=== PATIENT | male | born 1950 | race Caucasian/White ===

== ENCOUNTER 2017-07-30 22:43 | Observation (INO) | payer OTHER ==
[~2017-07-30] VITALS: Ht 175.3 cm; Wt 78.5 kg
[~2017-07-30 22:43] MED LIST: ADULT LOW DOSE81 MG PO; ASPIR 8181 MG PO; BRILINTA90 MG PO; EFFIENT10 MG PO; FISH OIL 1,0001 EAC8 PO; FISH OIL 1,001000 M2 PO; LIPITOR40 MG PO; MIRALAX255 GM PO; NITROGLYCERIN0.4 MG SUBLING; PLAVIX 75 MG TA75 M1 PO; PLAVIX 75 MG TA75 MG PO
[2017-07-30 22:46] VITALS: BP 139/73
[2017-07-30] MEDS ORDERED: ASPIRIN325 PO (22:58)
[2017-07-30] MEDS ORDERED: PLAVIX 75 MG TA75 M1 PO (22:58)
[2017-07-30 23:08] LABS: ABSOLUTE BASOPHILS 0.1 thou/uL (0.0-0.2); ABSOLUTE EOSINOPHILS 0.1 thou/uL (0.0-0.7); ABSOLUTE LYMPHOCYTES 1.9 thou/uL (0.8-5.3); ABSOLUTE NEUTROPHILS 6.3 thou/uL (1.6-8.1); BASOPHILS 0.9 %; EOSINOPHILS 1.5 %; HEMATOCRIT 43.7 % (42.0-52.0); LYMPHOCYTES 20.6 %; MCH 32.1 pg (26.0-34.0); MCHC 34.3 g/dL (28.0-37.0); MCV 93.6 fL (80.0-100.0); MONOCYTES 10.1 %; MPV 8.2 fl. (7.2-11.1); NUCLEATED RBCS 0 /100WBC; PLATELET COUNT* 195 thou/uL (150-400); POLYS 66.9 %; RBC 4.67 mil/uL (4.50-6.00); RDW-CV 13.7 % (10.5-14.5); WBC 9.4 thou/uL (4.0-11.0)
[2017-07-30 23:15] LABS: ANION GAP 6 mmol/L (7-16); BUN 23 mg/dL (7-18); CALCIUM 8.4 mg/dL (8.5-10.1); CHLORIDE 105 mmol/L (98-107); CO2 27 mmol/L (21-32); CREATININE 1.2 mg/dL (0.6-1.3); GLUCOSE 102 mg/dL (70-99); POTASSIUM 4.1 mmol/L (3.5-5.1); SODIUM 138 mmol/L (136-145)
[2017-07-30 23:18] LABS: PROTIME 9.9 Seconds (9.20-11.50)
[2017-07-30 23:26] LABS: ALBUMIN 3.4 g/dL (3.4-5.0); ALKALINE PHOSPHATASE 74 U/L (46-116); NT-PRO BRAIN NAT PEPTIDE 221 pg/mL (<300); SGOT 23 U/L (15-37); SGPT 18 U/L (30-65); TOTAL BILIRUBIN 0.4 mg/dL (<0.1-1.0); TOTAL PROTEIN 6.4 g/dL (6.4-8.2); TROPONIN-I LEVEL <0.06 ng/mL (<0.06)
[2017-07-31 01:16] LABS: URINE BILIRUBIN NEGATIVE (Negative); URINE BLOOD NEGATIVE (Negative); URINE CLARITY CLEAR; URINE COLOR YELLOW; URINE GLUCOSE-RANDOM NEGATIVE (Negative); URINE KETONES NEGATIVE (Negative); URINE LEUKOCYTES-REFLEX NEGATIVE (Negative); URINE NITRITE-REFLEX NEGATIVE (Negative); URINE PROTEIN NEGATIVE (Negative); URINE UROBILINOGEN 0.2 E.U./dl (0.2-1.0)
[2017-07-31 01:54] VITALS: BP 124/64
[2017-07-31 02:00] VITALS: BP 115/59
[2017-07-31 08:00] VITALS: BP 105/58
[2017-07-31 08:35] LABS: CALCIUM 8.2 mg/dL (8.5-10.1); MAGNESIUM 1.8 mg/dL (1.8-2.4); POTASSIUM 3.9 mmol/L (3.5-5.1)
[2017-07-31 12:00] VITALS: BP 114/59
--- NOTE | 2017-07-31 12:42 | EKG ---
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
[2017-07-31 16:00] VITALS: BP 110/57
[2017-07-31 20:12] VITALS: BP 113/62
[2017-08-01] VITALS (16 sets, daily range): BP systolic 99–155; BP diastolic 47–97
[2017-08-01 06:02] LABS: CHOLESTEROL 161 mg/dL (<200); HDL CHOLESTEROL 40 mg/dL (>40); LDL CHOLESTEROL 107 mg/dL (<100); SERUM ASSESSMENT Clear; TRIGLYCERIDE 71 mg/dL (<150); VLDL 14 mg/dL (<40)
--- NOTE | 2017-08-01 15:03 | CARD ---
[address] [address] CARDIAC CATH REPORT Name: JARETH RODGERS Room: [address] MAmyRAmy#: [id number] Admission: 07/31/17 Attend Phys: Bennett Hassan, Discharge: Date of : 54 Report #: [id number] THIS REPORT FOR: //name// APPROVED REPORT Patient Details Patient Status: In-Patient Room #: The patient is a 67 year-old male Event Personnel Daniel Min Tack Puller, Radha Grajeda RN RN, Lovely Gutiérrez RTR Shailesh Warren James Monitor Procedures Performed Left heart catheterization left ventriculography and selective coronary arteriography Indication Chest pain Risk Factors Hypercholesterolemia, Coronary Artery Disease Previous Procedures/Diagnoses Previous PCI Procedure Narrative The patient was brought electively to the Cardiac Catheterization Laboratory and was prepped and draped in a sterile manner. The right femoral was infiltrated with 1% Lidocaine subcutaneous anesthesia. A [place] 6 FR sheath was inserted into the . Coronary angiography was performed using coronary diagnostic catheters. The right coronary system was accessed and visualized with a Diagnostic - JR4 catheter. The left coronary system was accessed and visualized with a Diagnostic - JL4 catheter. The left ventricle was accessed and visualized with a Diagnostic - Pigtail catheter. Left ventricular/Aortic Valve gradient assessed via catheter pullback. Pre-demployment femoral angiogram was performed . Closure device was deployed with a Fr Mynx. The patient tolerated the procedure well and there were no complications associated with the procedure. Intraoperative Conscious Sedation Sedation start time: 1204 Case end Time: 1238 Fentanyl 25 mcg Versed [address] [address] CARDIAC CATH REPORT Name: JARETH RODGERS Room: [address] [place] Arora#: [id number] Admission: 07/31/17 Attend Phys: Bennett Hassan, Discharge: Date of : 54 Report #: [id number] Fluoro Time: 2.9 minutes Dose: DAP 78496 cGycm2 750 mGy Contrast Type and Amount: Visipaque 185 ml Diagnostic Cath Left Main 0% narrowing LAD 40% proximal and 30% mid LAD narrowing Circumflex 40% clefted and mid circumflex narrowing, this being a nondominant vessel Right Coronary Dominant vessel with 30% proximal narrowing and multiple widely patent proximalmid vessel stents with aneurysmal dilatation distally followed by 40% narrowing before the bifurcation into posterior lateral and posterior descending branches Left Ventriculography Ejection Fraction was 50% based off patient's . The left ventricle is normal in size with mildly decreased contractility. The left ventricular ejection fraction is estimated to be 50%. Left ventricular wall motion abnormalities are mid inferior hypokinesis. There is no mitral insufficiency. Hemodynamics The aortic pressure is 112/46 mmHg with a mean of 68 mmHg. The left ventricular pressure is 124/0 mmHg with a mean of mmHg. The left ventricular end diastolic pressure is 8 mmHg. There was no gradient across the aortic valve upon pullback. Conclusion #1 modest coronary artery disease characterized by the following: A 40% proximal 30% mid LAD narrowing, B 40% clefted narrowing of the midportion of the nondominant circumflex, C large dominant right coronary artery with 30% proximal narrowing, widely patent proximal and mid vessel stents, and 40% distal narrowing after an area of aneurysmal dilatation #2 normal left-sided hemodynamics study, #3 mild impairment in global left ventricular systolic function, estimated ejection fraction 50% with mid [place] [address] CARDIAC CATH REPORT Name: JARETH RODGERS Room: [address] M.R.#: [id number] Admission: 07/31/17 Attend Phys: Bennett Hassan, Discharge: Date of : 54 Report #: [id number] Recommendations Cardiac Risk Reduction Program <ELECTRONICALLY SIGNED> By: Daniel Min MD, FACC 08/01/17 1503 1503 1503Daniel Min MD, FACC /INF
--- NOTE | 2017-08-01 15:47 | EKG ---
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
--- NOTE | 2017-08-02 17:12 | CON ---
[address] [address] CONSULTATION Name: ANA MARIAJARETH RAYMUNDO Room: [address] [place] Arora#: [id number] Admission: 07/31/17 Attend Phys: Bennett Hassan, Discharge: 08/01/17 Date of : 54 Report #: [id number] THIS REPORT FOR: //name// CC: Gwyn Hassan CARDIOLOGY CONSULTATION HISTORY OF PRESENT ILLNESS: I was asked by Dr. Hassan to see this 67-year-old white male in cardiology consultation for evaluation and treatment of chest pain. This man has known coronary artery disease. He is status post 7 coronary stents, the last was in August [address] Min here. Previously, had stents placed in 2004, 2007 and 2012. He had a drug-eluting stent at a 75% mid right coronary stenosis. There was an in-stent restenosis and he had drug-eluting stent placed in an 80% stenosis of a posterolateral branch of the right coronary by Dr. iMn in 2016. Additionally, this man has hyperlipidemia. He is a smoker. He was told on certain terms today to stop smoking. He has been smoking a pack a day and he has a small abdominal aortic aneurysm that is said to be stable from a CT yesterday. This man's chest pain began following an episode of right groin pain associated with mid abdominal fluttering. He apparently got a CT of the chest yesterday that was unremarkable as well as a CT of the abdomen that showed a small abdominal aortic aneurysm that was stable. The abdominal pain lasted about 15 minutes. It was 8 or 9 on a scale of 10. It went away, but subsequently then he developed substernal chest pressure, similar to his previous heart pain, but milder. The pain was 5-6 on a scale of 10. Previously, he had had a 9 on a scale of 10 pain. The chest pain lasted 20 minutes. He has not had any pain since then. He has not been having any problem with exertional chest pain or damaris angina. The chest discomfort yesterday was not worse with exertion. It did seem to be better with rest. It did occur at rest. There was associated shortness of breath. There was no nausea. There was some diaphoresis yesterday. There seemed to be some relationship to food. It seemed to be aggravated by food. Said he did not try nitroglycerin at home and pain was gone by the time he got to the hospital. There was no radiation of the pain. He denies dyspnea on exertion, shortness of breath at rest, orthopnea or PND. He has not had any damaris syncope. Coronary risk factors include smoking, high cholesterol and a family history of coronary disease. He has not had diabetes or high blood pressure or chronic kidney disease. He has not had peripheral vascular disease. He does not clearly get claudication, but he does get pain in his legs when he walks. He apparently may have had some time a slight TIA. There are not any open or nonhealing wounds. ALLERGIES: HE IS ALLERGIC TO ZETIA, which causes a rash. MEDICATIONS: Aspirin 325 mg daily, atorvastatin 40 mg daily, Plavix 75 mg daily, p.r.n. nitroglycerin and fish oil 1 capsule daily apparently 1000 mg. FAMILY HISTORY: Remarkable for his mother having diabetes. Father had bypass [address] [address] CONSULTATION Name: JARETH RODGERS Room: [address] PADMINI Arora#: [id number] Admission: 07/31/17 Attend Phys: Bennett KerenAmy Mo, Discharge: 08/01/17 Date of : 54 Report #: [id number] graft surgery. Two brothers had heart attacks. Father had colon cancer. Grandparents all lived to be elderly, but all had heart disease. REVIEW OF SYSTEMS: Positive for weakness or paralysis. He says he has nerve damage. He has a chronic dry hacking cough. He is a smoker. He has palpitations, chest discomfort, shortness of breath with exercise and near syncope when he stands up suddenly on several occasions. He has had a blood clot in a vein he says. HE HAS ALLERGY TO ZETIA. He does wear glasses, does have dentures on the top, otherwise his review of systems is negative for some 35 different complaints in 14 different system categories including central nervous system, general, respiratory, cardiovascular, endocrine, gastrointestinal, genitourinary, hematologic, lymphatic, allergic, immunologic, psychiatric, musculoskeletal, skin, eyes, ears, nose, mouth and throat. Please see review of system form for details and negatives in review of systems. SOCIAL HISTORY: He is . 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 Smokes a pack a day. He was told to stop smoking. Does not drink, does not use illegal drugs. PHYSICAL EXAMINATION: GENERAL: He presents as well-developed, well-nourished white male in no acute distress. VITAL SIGNS: His pulse was 50 and regular, blood pressure is 115/59, respirations 17 and regular, temperature is 97.5. HEENT: His head was atraumatic. Eyes clear. NECK: Supple. There is no jugular venous distention or hepatojugular reflux. Thyroid is not enlarged. There is no adenopathy. SKIN: Warm and dry. MOUTH: Mucous membranes are moist. LUNGS: Clear to auscultation and percussion. HEART: Revealed normal first and second heart sound. There is soft S4. There is no S3. There are no murmurs, rubs, thrills, heaves or gallops. PMI is nondisplaced. ABDOMEN: Soft, flat, nontender, no palpable masses, no organomegaly. EXTREMITIES: Reveal no cyanosis, clubbing or edema. NEUROLOGIC: The patient mentated normally, talked normally and moved all extremities normally. LABORATORY DATA: Troponins are negative times 3. EKG shows normal sinus rhythm. There is some ST segment elevation in V3. There is also loss of R-wave there in V3 and V4. There is no elevation in V2 and V4. He does show sinus bradycardia. Another EKG is pending. IMPRESSION: 1. Chest pain, possibly coronary. 2. [place] [address] CONSULTATION Name: JARETH RODGERS Room: [address] [place] Arora#: [id number] Admission: 07/31/17 Attend Phys: Bennett Hassan, Discharge: 08/01/17 Date of : 54 Report #: [id number] 3. Status post multiple coronary stents, 7 in fact. 4. Hyperlipidemia. 5. Smoking. 6. Abdominal aortic aneurysm. RECOMMENDATION: He should have a stress test and an echo. Please see my orders. Thank you very much for asking me to see return the patient. If there are any questions, please feel free to contact me. <ELECTRONICALLY SIGNED> By: Olivia Beverly MD, FACC 08/02/17 1712 1213 1831F. Bret Beverly MD, FACC /nt
== END 2017-08-01 18:29 | disposition home or self-care (01) ==
LOC: M.ERS 22:43 → M.2W 07-31 00:50 → M.TBA-ER 07-31 00:50 → M.2W 07-31 01:32
PROVIDERS: Emergency Medicine; Internal Medicine; ADMIT Family Medicine
DX: E78.5 Hyperlipidemia, unspecified (principal); I25.110 Atherosclerotic heart disease of native coronary artery with unstable angina pectoris; I71.4 Abdominal aortic aneurysm, without rupture; I49.8 Other specified cardiac arrhythmias; I12.9 Hypertensive chronic kidney disease with stage 1 through stage 4 chronic kidney disease, or unspecified chronic kidney disease; N18.3 Chronic kidney disease, stage 3 (moderate); I25.2 Old myocardial infarction; F17.210 Nicotine dependence, cigarettes, uncomplicated; Z23 Encounter for immunization

== ENCOUNTER 2018-06-02 15:22 | Emergency (ER) | payer MEDICARE ==
[~2018-06-02] VITALS: Ht 172.7 cm; Wt 77.6 kg
[~2018-06-02 15:22] MED LIST changes: +ASPIRIN325 PO
[2018-06-02 16:15] LABS: ABSOLUTE BASOPHILS 0.1 thou/uL (0.0-0.2); ABSOLUTE EOSINOPHILS 0.2 thou/uL (0.0-0.7); ABSOLUTE LYMPHOCYTES 1.7 thou/uL (0.8-5.3); ABSOLUTE MONOCYTES 0.7 thou/uL (0.0-1.2); ABSOLUTE NEUTROPHILS 4.3 thou/uL (1.6-8.1); EOSINOPHILS 2.6 %; HEMATOCRIT 42.4 % (42.0-52.0); HEMOGLOBIN 14.5 gm/dL (14.0-18.0); LYMPHOCYTES 24.5 %; MCH 32.2 pg (26.0-34.0); MCHC 34.2 g/dL (28.0-37.0); MCV 94.3 fL (80.0-100.0); MONOCYTES 10.4 %; MPV 8.2 fl. (7.2-11.1); NUCLEATED RBCS 0 /100WBC; PLATELET COUNT* 218 thou/uL (150-400); POLYS 61.5 %; RDW-CV 13.3 % (10.5-14.5); WBC 6.9 thou/uL (4.0-11.0)
[2018-06-02 16:21] LABS: URINE BILIRUBIN NEGATIVE (Negative); URINE BLOOD NEGATIVE (Negative); URINE CLARITY CLEAR; URINE COLOR YELLOW; URINE GLUCOSE-RANDOM NEGATIVE (Negative); URINE KETONES NEGATIVE (Negative); URINE LEUKOCYTES-REFLEX NEGATIVE (Negative); URINE NITRITE-REFLEX NEGATIVE (Negative); URINE PROTEIN NEGATIVE (Negative); URINE UROBILINOGEN 0.2 E.U./dl (0.2-1.0)
[2018-06-02 16:25] LABS: ANION GAP 8 mmol/L (7-16); BUN 9 mg/dL (7-18); CALCIUM 9.1 mg/dL (8.5-10.1); CHLORIDE 102 mmol/L (98-107); CO2 30 mmol/L (21-32); CREATININE 1.1 mg/dL (0.6-1.3); GLUCOSE 109 mg/dL (70-99); SODIUM 140 mmol/L (136-145)
[2018-06-02 16:36] LABS: ALBUMIN 3.6 g/dL (3.4-5.0); ALKALINE PHOSPHATASE 79 U/L (46-116); NT-PRO BRAIN NAT PEPTIDE 166 pg/mL (<300); SGOT 20 U/L (15-37); SGPT 21 U/L (30-65); TOTAL BILIRUBIN 0.6 mg/dL (<0.1-1.0); TOTAL PROTEIN 6.6 g/dL (6.4-8.2); TROPONIN-I LEVEL <0.06 ng/mL (<0.06)
[2018-06-02 17:29] LABS: INFLUENZA A ANTIGEN None Detected (None Detect); INFLUENZA B ANTIGEN None Detected (None Detect)
[2018-06-02 18:33] VITALS: BP 133/64
--- NOTE | 2018-06-03 12:12 | EKG ---
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: Stu JJ : 1950 Requested By: Alida Wang Order Number: [id number] MD: Jose Gibbs Measurements Intervals [place] Rate: 52 P: 46 OR: 154 QRS: 77 QRSD: 96 T: 38 QT: 449 QTc: 418 Interpretive Statements Sinus rhythm Minimal ST elevation, anterior leads Baseline wander in lead(s) V4 Compared to ECG 07/31/2017 12:09:44 Sinus bradycardia no longer present ST (T wave) deviation still present Electronically Signed On 06-03-2018 12:12:25 CARE NURSE RN by Jose Gibbs [email or web address] <ELECTRONICALLY SIGNED> By: Jose Gibbs MD, FAC 06/03/18 1212 1551 1551 Jose Gibbs MD, [facility] /EPI
== END 2018-06-02 18:34 | disposition home or self-care (01) ==
LOC: M.ERS 15:22
PROVIDERS: Nurse Practitioner
DX: R53.1 Weakness (principal); E86.0 Dehydration; F17.210 Nicotine dependence, cigarettes, uncomplicated; Z88.8 Allergy status to other drugs, medicaments and biological substances; Z95.5 Presence of coronary angioplasty implant and graft

== ENCOUNTER → 2018-07-06 | Outpatient (CLI) | payer MEDICARE, OTHER | LOC: M.ULTRA 07-05 10:00 | DX: I71.4 Abdominal aortic aneurysm, without rupture (principal) ==

== ENCOUNTER 2019-08-02 19:14 | Inpatient (IN) | payer MEDICARE, OTHER ==
[~2019-08-02] VITALS: Ht 175.3 cm; Wt 78.5 kg
[2019-08-02 19:22] VITALS: BP 165/73
[2019-08-02 19:39] LABS: ABSOLUTE BASOPHILS 0.1 thou/uL (0.0-0.2); ABSOLUTE EOSINOPHILS 0.2 thou/uL (0.0-0.7); ABSOLUTE LYMPHOCYTES 1.6 thou/uL (0.8-5.3); ABSOLUTE MONOCYTES 0.7 thou/uL (0.0-1.2); ABSOLUTE NEUTROPHILS 3.5 thou/uL (1.6-8.1); BASOPHILS 0.9 %; EOSINOPHILS 2.5 %; HEMATOCRIT 45.5 % (42.0-52.0); HEMOGLOBIN 16.2 gm/dL (14.0-18.0); MCH 33.2 pg (26.0-34.0); MCHC 35.6 g/dL (28.0-37.0); MCV 93.3 fL (80.0-100.0); MONOCYTES 11.7 %; MPV 7.7 fl. (7.2-11.1); NUCLEATED RBCS 0 /100WBC; PLATELET COUNT* 230 thou/uL (150-400); POLYS 57.9 %; RBC 4.88 mil/uL (4.50-6.00); RDW-CV 13.6 % (10.5-14.5); WBC 6.1 thou/uL (4.0-11.0)
[2019-08-02 19:42] LABS: CALCIUM 8.4 mg/dL (8.5-10.1); CREATININE 1.2 mg/dL (0.6-1.3); POTASSIUM 4.1 mmol/L (3.5-5.1)
[2019-08-02 19:52] LABS: URINE BILIRUBIN NEGATIVE (Negative); URINE BLOOD NEGATIVE (Negative); URINE CLARITY CLEAR; URINE COLOR YELLOW; URINE GLUCOSE-RANDOM NEGATIVE (Negative); URINE KETONES NEGATIVE (Negative); URINE LEUKOCYTES-REFLEX NEGATIVE (Negative); URINE NITRITE-REFLEX NEGATIVE (Negative); URINE PROTEIN NEGATIVE (Negative); URINE SPECIFIC GRAVITY >= 1.030 (1.005-1.030); URINE UROBILINOGEN 0.2 E.U./dl (0.2-1.0)
[2019-08-02 19:52] LABS: TOTAL BILIRUBIN 0.7 mg/dL (<0.1-1.0); TOTAL PROTEIN 7.4 g/dL (6.4-8.2)
[2019-08-02 20:57] LABS: AMP/METHAMP Negative (Negative); BARBITURATES Negative (Negative); BENZODIAZEPINES Negative (Negative); COCAINE Negative (Negative); METHADONE Negative (Negative); OPIATES POSITIVE (Negative); PCP Negative (Negative); THC POSITIVE (Negative)
[2019-08-02 20:59] LABS: APTT 27.1 Seconds (25.0-31.3); PROTIME 10.2 Seconds (9.20-11.50)
[2019-08-02 23:30] VITALS: BP 131/49
[2019-08-02 23:35] VITALS: BP 130/67
[2019-08-03 04:00] VITALS: BP 107/42
--- NOTE | 2019-08-03 04:51 | NUR ---
PT ADMITTED TO FLOOR AT 2310 WITH C/O RIGHT FLANK PAIN. PARTIAL CONTROLLED WITH PRN PAIN MEDICATION. PT HAS NO OTHER CONCERNS NOTED AT THIS TIME. ASSESSMENTS COMPLETED AT BEDSIDE, CURRENTLY ASLEEP IN BED WITH CALL LIGHT WITHIN REACH.
--- NOTE | 2019-08-03 07:20 | NUR ---
CHANGE OF SHIFT, BEDSIDE REPORT GIVEN PATIENT SEEN AT BEDSIDE, IN BED ASSUMED PATIENT CARE
[2019-08-03 08:00] VITALS: BP 103/34
[2019-08-03 09:19] LABS: CHOLESTEROL 89 mg/dL (<200); HDL CHOLESTEROL 29 mg/dL (>40); LDL CHOLESTEROL 54 mg/dL (<100); TC:HDL 3.1 Ratio (Not establshd); TRIGLYCERIDE 34 mg/dL (<150); VLDL 7 mg/dL (<40)
[2019-08-03 09:20] LABS: SERUM ASSESSMENT Clear
--- NOTE | 2019-08-03 09:45 | EKG ---
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 normal variant Compared to ECG 06/02/2018 15:51:23 Sinus rate has decreased ST (T wave) deviation still present Electronically Signed On 08-03-2019 9:44:08 SUPERVISING PRODUCER by Daniel Min [email or web address] <ELECTRONICALLY SIGNED> By: Daniel Min MD, [facility] 08/03/19 0944 44 44 Daniel Min MD, FAC /EPI
[2019-08-03 12:59] VITALS: BP 122/43
[2019-08-03 18:20] LABS: URINE BILIRUBIN NEGATIVE (Negative); URINE BLOOD NEGATIVE (Negative); URINE CLARITY CLEAR; URINE COLOR YELLOW; URINE GLUCOSE-RANDOM NEGATIVE (Negative); URINE KETONES NEGATIVE (Negative); URINE LEUKOCYTES NEGATIVE (Negative); URINE NITRITE NEGATIVE (Negative); URINE PROTEIN NEGATIVE (Negative); URINE UROBILINOGEN 0.2 E.U./dl (0.2-1.0)
[2019-08-03 19:39] VITALS: BP 130/49
[2019-08-03 19:56] VITALS: BP 109/47
[2019-08-04] VITALS: BP 118/41
[2019-08-04 03:30] VITALS: BP 108/45
[2019-08-04 05:37] LABS: MCH 32.6 pg (26.0-34.0); MCHC 35.1 g/dL (28.0-37.0); MCV 92.8 fL (80.0-100.0); RBC 4.21 mil/uL (4.50-6.00); RDW-CV 13.5 % (10.5-14.5); WBC 6.5 thou/uL (4.0-11.0)
[2019-08-04 05:44] LABS: HEMOGLOBIN 13.7 gm/dL (14.0-18.0)
[2019-08-04 05:57] LABS: CALCIUM 7.4 mg/dL (8.5-10.1); CREATININE 0.9 mg/dL (0.6-1.3); MAGNESIUM 1.8 mg/dL (1.8-2.4); POTASSIUM 4.2 mmol/L (3.5-5.1)
--- NOTE | 2019-08-04 06:12 | NUR ---
PT HAD C/O PAIN THROUGHOUT HS SHIFT REQUIRING PRN PAIN MEDICATION Q2 HOURS. EDUCATED PT ON PRN MEDICATION IS NOT SCHEDULED AND HE MUST REQUEST THE MEDICATION. PT HAD EPISODE OF DESAT TO 87 BUT REFUSED SUPPLEMENTAL OXYGEN HE SAID HE WAS FINE. NO OTHER CONCERNS NOTED BY PT, CURRENTLY ASLEEP IN BED WITH CALL LIGHT WITHIN REACH.
[2019-08-04 07:30] VITALS: BP 111/52
--- NOTE | 2019-08-04 11:00 | NUR ---
ASSUMED PT CARE AT 0800, AOX4, UP AD SHERWIN, O2 SAT 90'S RA. TRACING SINUS ELENI ON TELE. COMPLAINS OF R SIDED FLANK PAIN. PAIN MEDS GIVEN WITH MILD RELIEF. PT GOAL FOR DISCHARGE. VSS, AM ASSESSMENT CHARTED, HOURLY ROUNDING, WILL CONTINUE TO MONITOR.
[2019-08-04 12:16] VITALS: BP 111/50
[2019-08-04] MEDS ORDERED: FLEXERIL PO (13:32)
[2019-08-04] MEDS ORDERED: FLOMAX0.4 MG PO (13:33)
[2019-08-04 13:35] VITALS: BP 111/50
[2019-08-04] MEDS ORDERED: TYLENOL325 M1 PO (13:44)
[2019-08-04] MEDS ORDERED: IBUPROFEN IB100 MG PO (13:45)
--- NOTE | 2019-08-04 14:23 | NUR ---
DISCHARGED GABRIELA DISCUSSED WITH PT. MEDICATION SCRIPT/PACKET GIVEN. IV, TELE REMOVED. REMINDED TO FOLLOW UP PCP, UROLOGY. ALL BELONGINGS PACKED AND CHECKED. LEFT THE UNIT AMBULATORY AT 1400.
== END 2019-08-04 14:10 | disposition home or self-care (01) | DRG 694 ==
LOC: M.ERS 19:14 → M.TBA-ER 21:51 → M.2W 21:51
PROVIDERS: Internal Medicine; Physician Assistant; ADMIT Internal Medicine
DX: N20.0 Calculus of kidney (principal); N42.89 Other specified disorders of prostate; N28.1 Cyst of kidney, acquired; I71.4 Abdominal aortic aneurysm, without rupture; F17.210 Nicotine dependence, cigarettes, uncomplicated; I25.10 Atherosclerotic heart disease of native coronary artery without angina pectoris; R00.1 Bradycardia, unspecified; N40.0 Benign prostatic hyperplasia without lower urinary tract symptoms; F12.10 Cannabis abuse, uncomplicated; E78.5 Hyperlipidemia, unspecified; Z95.5 Presence of coronary angioplasty implant and graft; Z87.442 Personal history of urinary calculi; I25.2 Old myocardial infarction; Z79.82 Long term (current) use of aspirin; Z79.899 Other long term (current) drug therapy; Z88.8 Allergy status to other drugs, medicaments and biological substances; Z82.49 Family history of ischemic heart disease and other diseases of the circulatory system; Z83.3 Family history of diabetes mellitus

== ENCOUNTER 2021-04-22 13:57 | Observation (INO) | payer MEDICARE, OTHER ==
[~2021-04-22] VITALS: Ht 177.8 cm; Wt 73.9 kg
[~2021-04-22 13:57] MED LIST changes: +FLEXERIL PO; +FLOMAX0.4 MG PO; +IBUPROFEN IB100 MG PO; +TYLENOL325 M1 PO
[2021-04-22 14:00] VITALS: BP 112/68
[2021-04-22 14:35] LABS: ABSOLUTE BASOPHILS 0.1 thou/uL (0.0-0.2); ABSOLUTE EOSINOPHILS 0.2 thou/uL (0.0-0.7); ABSOLUTE LYMPHOCYTES 1.5 thou/uL (0.8-5.3); ABSOLUTE MONOCYTES 0.7 thou/uL (0.0-1.2); ABSOLUTE NEUTROPHILS 5.6 thou/uL (1.6-8.1); BASOPHILS 0.9 %; EOSINOPHILS 1.9 %; HEMATOCRIT 44.8 % (42.0-52.0); HEMOGLOBIN 15.4 gm/dL (14.0-18.0); LYMPHOCYTES 18.3 %; MCH 31.8 pg (26.0-34.0); MCHC 34.3 g/dL (28.0-37.0); MCV 92.8 fL (80.0-100.0); MPV 7.5 fl. (7.2-11.1); NUCLEATED RBCS 0 /100WBC; PLATELET COUNT* 210 thou/uL (150-400); POLYS 69.9 %; RBC 4.83 mil/uL (4.50-6.00); RDW-CV 14.1 % (10.5-14.5)
[2021-04-22 14:46] LABS: CALCIUM 8.7 mg/dL (8.5-10.1); POTASSIUM 3.9 mmol/L (3.5-5.1)
[2021-04-22 14:51] LABS: ALBUMIN 3.8 g/dL (3.4-5.0); TOTAL BILIRUBIN 1.4 mg/dL (<0.1-1.0); TOTAL PROTEIN 7.2 g/dL (6.4-8.2)
[2021-04-22 20:00] VITALS: BP 120/66
[2021-04-22 20:10] VITALS: BP 103/56
[2021-04-22 21:25] VITALS: BP 111/80
[2021-04-23 00:29] VITALS: BP 152/62
--- NOTE | 2021-04-23 02:57 | NUR ---
PATIENT UPSET BECAUSE HE DID NOT GET HOME MEDICATIONS RESTARTED AND WANTED TO GO HOME. RISKS OF LEAVING AMA WERE DISCUSSED WITH PATIENT AND HE DECIDED TO LEAVE AMA. PT CALLED SON TO PICK HIM UP IN ER. PT SIGNED THE AMA PAPERWORK AND IV REMOVED ALONG WITH SOCIAL MEDIA MARKETING SPECIALIST. SPOKE WITH DR STEWART ABOUT PT'S CHOICE TO LEAVE.
--- NOTE | 2021-04-23 08:09 | EKG ---
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 : 1950 Requested By: Johana Porter Order Number: [id number] MD: Kamari Haines Measurements Intervals [place] Rate: 62 P: 75 DE: 147 QRS: 84 QRSD: 91 T: 104 QT: 419 QTc: 426 Interpretive Statements Sinus rhythm Multiple ventricular premature complexes Borderline right axis deviation Nonspecific T abnormalities, lateral leads Baseline wander in lead(s) I,III,aVL Compared to ECG 08/02/2019 19:45:49 Ventricular premature complex(es) now present T-wave abnormality now present Sinus bradycardia no longer present ST (T wave) deviation no longer present Electronically Signed On 04-23-2021 8:09:30 CDT by Kamari Haines [email or web address] <ELECTRONICALLY SIGNED> By: Kamari Haines MD, [facility] 04/23/21 0809 1403 140 Kamari Haines MD, [facility] /EPI
== END 2021-04-23 02:50 | disposition left against medical advice (07) ==
LOC: M.ERS 13:57 → M.TBA-ER 16:07 → M.2W 21:53
PROVIDERS: Physician Assistant; ADMIT Internal Medicine; ATTEND Internal Medicine
DX: R07.2 Precordial pain (principal); R06.02 Shortness of breath; Z20.822 Contact with and (suspected) exposure to COVID-19; Z79.899 Other long term (current) drug therapy; Z79.01 Long term (current) use of anticoagulants